=== PATIENT | female | born 1990 | race Caucasian/White ===

== ENCOUNTER 2022-12-10 14:37 | Outpatient (CLI) | payer OTHER, SELFPAY | END 2022-12-10 14:38 | disposition home or self-care (01) | PROVIDERS: PCP Family Medicine; Visit Provider Family Medicine | DX: Z00.00 Encounter for general adult medical examination without abnormal findings (principal); E66.9 Obesity, unspecified; R03.0 Elevated blood-pressure reading, without diagnosis of hypertension; F41.9 Anxiety disorder, unspecified; R53.83 Other fatigue; R73.09 Other abnormal glucose; Z13.6 Encounter for screening for cardiovascular disorders | CPT/HCPCS: 80053; 80061; 84443 ==

== ENCOUNTER 2023-04-09 12:42 | Outpatient (CLI) | payer OTHER, SELFPAY ==
--- NOTE | 2023-04-09 13:00 | CRLHL7_ITS ---
For Patients: As a result of the Century Cures Act, medical imaging exams and procedure reports are released immediately into your electronic medical record. You may view this report before your referring provider. If you have questions, please contact your health care provider. INDICATION: First trimester scan, establish dates. COMPARISON: None. TECHNIQUE: Real-time perkins-scale imaging of the pelvis was performed. FINDINGS: Sonographic imaging demonstrates a single living intrauterine gestation. The embryo demonstrates a regular cardiac rate measuring 159 beats per minute. The embryo`s crown-rump length measurement of 1.9 cm corresponds to a gestational age of 8 weeks 3 days with a sonographic due date of 11/16/2023. There is a normal-appearing yolk sac. There are no gross abnormalities noted within the embryo at this early state of development. The gestational sac has a normal appearance. There is no evidence of a perigestational hemorrhage. The amount of fluid within the sac appears appropriate for gestational age. The cervix is closed. The myometrium appears normal. Small incidental cervical nabothian cyst. The ovaries are of normal size. Corpus luteal cyst left ovary. There are no suspicious fluid collections noted in the cul-de-sac. IMPRESSION: Normal first trimester OB ultrasound exam. Gestational age calculated at 8 weeks 3 days with a sonographic due date of 11/16/2023. Dictated by Roosevelt Méndez MD @ 04/09/2023 2:07:38 PM (Electronically Signed)
== END 2023-04-09 12:43 | disposition home or self-care (01) ==
LOC: US 12:44
PROVIDERS: PCP Family Medicine; Visit Provider Registered Nurse
DX: Z34.91 Encounter for supervision of normal pregnancy, unspecified, first trimester (principal); Z3A.08 8 weeks gestation of pregnancy
CPT/HCPCS: 76817; 84443; 86703; 86803; 86850; 86900; 86901; 87086; 87340; 87491; 87591

== ENCOUNTER 2023-04-09 14:03 | Outpatient (CLI) | payer OTHER, SELFPAY ==
[2023-04-09 18:55] LABS: Chlamydia DNA Amplified* NOT DETECTED (No Detected); GC DNA Amplified* NOT DETECTED (No Detected)
== END 2023-04-09 14:04 | disposition home or self-care (01) ==
PROVIDERS: PCP Family Medicine; Visit Provider Registered Nurse
DX: Z34.91 Encounter for supervision of normal pregnancy, unspecified, first trimester (principal); Z3A.08 8 weeks gestation of pregnancy
CPT/HCPCS: 84443; 86592; 86703; 86762; 86787; 86803; 86850; 86900; 86901; 87086; 87340; 87491; 87591

== ENCOUNTER 2023-04-23 10:22 | Outpatient (CLI) | payer OTHER, SELFPAY ==
--- NOTE | 2023-04-23 10:45 | CRLHL7_ITS ---
For Patients: As a result of the Cures Act, medical imaging exams and procedure reports are released immediately into your electronic medical record. You may view this report before your referring provider. If you have questions, please contact your health care provider. INDICATION: NONTOXIC GOITER COMPARISON: none TECHNIQUE: [place] scale and color Doppler images were acquired of the thyroid gland. FINDINGS: The thyroid gland demonstrates heterogeneous echogenicity and has a smooth outer contour. The right lobe measures 5.8 x 1.4 x 1.9 cm and the left lobe measures 5.2 x 1.6 x 2.3 cm in size. The isthmus measures 3 millimeters. Near isoechoic nodule inferior pole right thyroid lobe measures 6 x 5 x 10 millimeters, TR 3. Partially hypoechoic nodule inferior pole left thyroid lobe measures 7 x 7 x 7 millimeters, TR 4. Near isoechoic nodule inferior pole left thyroid lobe measuring 5 x 5 x 10 millimeters, TR 3. The color Doppler images demonstrate normal vascularity. There is no evidence of cervical lymphadenopathy or parathyroid mass. IMPRESSION: Small benign thyroid nodules measuring 1 cm or less. No further follow-up indicated. Dictated by Roosevelt Méndez MD @ 04/23/2023 12:56:22 PM (Electronically Signed)
== END 2023-04-23 10:23 | disposition home or self-care (01) ==
LOC: US 10:23
PROVIDERS: PCP Family Medicine; Visit Provider Registered Nurse
DX: E04.9 Nontoxic goiter, unspecified (principal)
CPT/HCPCS: 76536

== ENCOUNTER 2023-07-02 12:45 | Outpatient (CLI) | payer OTHER, SELFPAY ==
--- NOTE | 2023-07-02 13:00 | CRLHL7_ITS ---
For Patients: As a result of the Century Cures Act, medical imaging exams and procedure reports are released immediately into your electronic medical record. You may view this report before your referring provider. If you have questions, please contact your health care provider. INDICATION: Evaluate anatomy. COMPARISON: 04/09/2023 TECHNIQUE: Real time perkins scale imaging of the fetus was performed as well as color Doppler analysis of the umbilical vessels. FINDINGS: Sonographic imaging demonstrates a single living intrauterine gestation. Fetus demonstrates a regular cardiac rate of 138 beats per minute. Fetus has a vertex position. The placenta lies posteriorly without evidence of placenta previa. The placental edge is located 4.5 cm from the internal cervical os. Amniotic fluid volume appears normal. Single deepest vertical pocket: 4.3 cm. The cervix is closed and measures 4.2 cm in length. The composite ultrasound gestational age is calculated at 19 weeks 5 days with an estimated sonographic due date of 11/21/2023. The estimated weight is 325 grams which lies at the 23rd %. The following biometric measurements were obtained: Biparietal diameter: 4.5 cm/19 weeks 4 days 15th% Head circumference: 16.8 cm/19 weeks 3 days 8th% Abdominal circumference: 14.4 cm/19 weeks 5 days 23rd% Femur length: 3.3 cm/20 weeks 3 days 42nd% The HC/AC ratio measures: 1.17 range (1.08-1.26) On anatomic survey, there is a normal appearance of the cerebral ventricles, cavum septi pellucidi, cisterna magna and cerebellum. The nose, lips, and facial profile appear normal. The cervical, thoracic and lumbar spine are well visualized and appear normal. There is a normal four-chamber heart view and the left and right ventricular outflow tracts appear normal. The diaphragm and stomach appear normal. The kidneys and bladder also appear normal. There is a normal three-vessel cord and cord insertion site. The four extremities appear normal. IMPRESSION: Normal OB ultrasound exam with concordance of clinical and sonographic dating. No intrinsic abnormalities noted on anatomic survey. Dictated by Roosevelt Méndez MD @ 07/02/2023 1:47:13 PM (Electronically Signed)
== END 2023-07-02 12:46 | disposition home or self-care (01) ==
LOC: US 12:46
PROVIDERS: PCP Family Medicine; Visit Provider Obstetrics & Gynecology
DX: Z34.92 Encounter for supervision of normal pregnancy, unspecified, second trimester (principal); Z3A.19 19 weeks gestation of pregnancy
CPT/HCPCS: 76805

== ENCOUNTER 2023-08-26 10:05 | Outpatient (CLI) | payer OTHER, SELFPAY ==
--- OUTSIDE RECORDS SUMMARY | 2023-08-29 13:20 | XMS_ITS | Clinical Summary ---
Author Name Unknown Organization [facility] Address [place], [place] [address] Care Team Providers Care Financial Solutions Advisor Name Role Phone Clinic, No Pcp Or Primary Care Provider Unavaila ble Allergies No known active allergies Medications No known medications Family History Medical History Relation Name Comments Diabetes Father Diabetes Paternal Grandfather Relation Name Status Comments Father Paternal Grandfather Social History Tobacco Use Types Packs/Day Years Used Date Smoking Tobacco: Never Smokeless Tobacco: Never Tobacco Cessation:Counseling Given: No Alcohol Use Standard Drinks/Week Comments Yes 0 (1 standard drink = 0.6 oz pur e alcohol) Sex and Gender Information Value Date Recorded Sex Assigned at Not on file Gender Identity Not on file Sexual Orientation Not on file Obstetrics History Last Filed Vital Signs Vital Sign Reading Time Taken Comments Blood Pressure 125/81 01/06/2018 4:09 PM CDT Pulse 67 01/06/2018 4:09 PM CDT Temperature 36.9 ??C (98.4 ??F) 12/29/2017 1:18 PM CD T Respiratory Rate - - Oxygen Saturation 99% 01/06/2018 4:09 PM CDT Inhaled Oxygen Concentration - - Weight 87.2 kg (192 lb 3.2 oz) 01/06/2018 4:09 P M CDT Height 172 cm (5' 7.72) 01/06/2018 4:09 PM CDT Body Mass Index 29.47 01/06/2018 4:09 PM CDT Plan of Treatment Health Maintenance Due Date Last Done Comments COVID-19 vaccine series (#1) 1989 Tdap 01/16/2000 HIV for age 15-65 01/16/2004 Hepatitis C screening for ag e 18-79 2007 Tetanus booster 2009 Depression screening for age 12+ 12/29/2018 12/29/2017 BMI (ht and wt on same day) for age 18+ 01/06/2019 01/06/2018, 12/29/2017 Pap test for age 21-65 01/27/2023 0, 01/28/2020 Influenza for age 9-49 04/11/2023 Pneumococcal series for age 6-64 Aged Out No longer eligible b ased on patient's age to complete this topic Care Teams Financial Solutions Advisor Relationship Specialty Start Date End Date Clinic, No Pcp Or . PCP - General 12/29/17
== END 2023-08-26 10:06 | disposition home or self-care (01) ==
LOC: NFLDREF 08-29 13:19
PROVIDERS: PCP Family Medicine; Referring Provider Family Medicine; Visit Provider Obstetrics & Gynecology
DX: Z11.3 Encounter for screening for infections with a predominantly sexual mode of transmission (principal)
CPT/HCPCS: 86592

== ENCOUNTER 2023-09-09 10:37 | Outpatient (CLI) | payer OTHER, SELFPAY ==
--- OUTSIDE RECORDS SUMMARY | 2023-09-09 10:40 | XMS_ITS | Clinical Summary ---
Author Name Unknown Organization [employer] [facility] Address [place], [place] [address] Care Team Providers Care Insulation Cupola Charger Name Role Phone Clinic, No Pcp Or [...] age to complete this topic Care Teams Insulation Cupola Charger Relationship Specialty Start Date End Date Clinic, No Pcp Or . PCP - General 12/29/17
== END 2023-09-09 10:38 | disposition home or self-care (01) ==
PROVIDERS: PCP Family Medicine; Visit Provider Obstetrics & Gynecology
DX: O16.3 Unspecified maternal hypertension, third trimester (principal)
CPT/HCPCS: 82565; 82570; 84156; 84450; 84460; 84520

== ENCOUNTER 2023-09-17 12:59 | Outpatient (CLI) | payer OTHER, SELFPAY ==
--- NOTE | 2023-09-17 13:00 | CRLHL7_ITS ---
For Patients: As a result of the Century Cures Act, medical imaging exams and procedure reports are released immediately into your electronic medical record. You may view this report before your referring provider. If you have questions, please contact your health care provider. INDICATION: Third trimester scan, evaluate growth. Size discrepancy. COMPARISON: 07/02/2023 TECHNIQUE: Real time perkins scale imaging of the fetus was performed. FINDINGS: Sonographic imaging demonstrates a single living intrauterine gestation. Fetus demonstrates a regular cardiac rate of 131 beats per minute. Fetus has a vertex position. The placenta lies posteriorly. Amniotic fluid volume appears normal and there is a single deepest vertical pocket: 4.2 cm. The estimated weight is 1631gm which lies at the 19th %. On the prior OB ultrasound exam dated 07/02/2023 the estimated weight was at the 23rd%. BPD 8th percentile. HC 9th percentile. AC 22nd percentile. FL 30th percentile. The HC/AC ratio measures 1.07 range (0.96-1.18). IMPRESSION: Sonographic gestational age 30 weeks 5 days and sonographic due date 11/21/2023. Sonographic age is 5 days behind the clinical age. Estimated weight 19th percentile. Abdominal circumference 22nd percentile. Dictated by Roosevelt Méndez MD @ 09/18/2023 10:05:36 AM (Electronically Signed)
--- OUTSIDE RECORDS SUMMARY | 2023-09-17 13:01 | XMS_ITS | Clinical Summary ---
Author Name Unknown Organization [employer] [facility] Address [place], [place] [address] Care Team Providers Care State Comptroller Name Role Phone Clinic, No Pcp Or [...] age to complete this topic Care Teams State Comptroller Relationship Specialty Start Date End Date Clinic, No Pcp Or . PCP - General 12/29/17"
== END 2023-09-17 13:00 | disposition home or self-care (01) ==
LOC: US 12:59
PROVIDERS: PCP Family Medicine; Visit Provider Obstetrics & Gynecology
DX: O26.843 Uterine size-date discrepancy, third trimester (principal); Z3A.30 30 weeks gestation of pregnancy
CPT/HCPCS: 76816

== ENCOUNTER 2023-09-24 10:59 | Outpatient (CLI) | payer OTHER, SELFPAY ==
--- NOTE | 2023-09-24 11:00 | US_ITS ---
INDICATION: CHRONIC HYPERTENSION. TECHNIQUE: ROUTINE GRAYSCALE NONSTRESS TESTING ULTRASOUND OF FETUS PERFORMED. COMPARISON: 09/17/2023. FINDINGS: NORMAL GROSS BODY MOVEMENTS, TONE AND RESPIRATORY ACTIVITY. NORMAL AMNIOTIC FLUID WITH SINGLE DEEPEST POCKET MEASURING 5.8 CM. HEART RATE 127 BEATS PER MINUTE. PLACENTA IS POSTERIOR. VERTEX POSITION. IMPRESSION: BIOPHYSICAL PROFILE 03/18.
--- OUTSIDE RECORDS SUMMARY | 2023-09-24 11:01 | XMS_ITS | Clinical Summary ---
Author Name Unknown Organization [facility] [facility] Address [place], [place] [address] Care Team Providers Care Geoscience Specialist Name Role Phone Clinic, No Pcp Or [...] age to complete this topic Care Teams Geoscience Specialist Relationship Specialty Start Date End Date Clinic, No Pcp Or . PCP - General 12/29/17
== END 2023-09-24 11:00 | disposition home or self-care (01) ==
LOC: US 10:59
PROVIDERS: PCP Family Medicine; Visit Provider Obstetrics & Gynecology
DX: O10.919 Unspecified pre-existing hypertension complicating pregnancy, unspecified trimester (principal)
CPT/HCPCS: 76819

== ENCOUNTER 2023-09-25 06:54 | Day surgery (SDC) | payer OTHER, SELFPAY ==
[2023-09-25] VITALS (12 sets, daily range): BP systolic 130–141; BP diastolic 75–85; PULSE 86–102; RESP 16–20; TEMP 36.5–36.6; O2SAT 97–99; BMI 43.7
--- OUTSIDE RECORDS SUMMARY | 2023-09-25 06:56 | XMS_ITS | Clinical Summary ---
Author Name Unknown Organization [facility] Address [place], [place] [address] Care Team Providers Care Restaurant Busser Name Role Phone Clinic, No Pcp Or [...] age to complete this topic Care Teams Restaurant Busser Relationship Specialty Start Date End Date Clinic, No Pcp Or . PCP - General 12/29/17
[2023-09-25] MEDS: lidocaine HCL 2 % MULTIDOSE 20 ML VIAL 7 ML INJECTION (07:40)
[2023-09-25] MEDS: BUPIVACAINE 0.5% 30 ML 5 ML INJECTION (07:40)
--- NOTE | 2023-09-25 08:22 | P.ORPRC_ITS ---
Procedure Note Date of procedure: 09/25/23 Procedure: Preop diagnosis: Right upper extremity de quervain's tenosynovitis Postop diagnosis: Right upper extremity de quervain's tenosynovitis Procedure: Right upper extremity 1st dorsal compartment release Anesthesia: Local Surgeon: Jourdan Valle MD health information assistant: CHELY Kan EBL: 0 mL Complications: None Specimens: None Drains: None Indications: The patient has a history of right upper extremity de quervain's tenosynovitis symptoms. Despite appropriate nonoperative management consisting of bracing and occupational therapy they continue to have symptoms. Operative intervention was recommended. The risks, benefits alternatives and expected outcomes were discussed in detail. These included but were not limited to: Infection, bleeding, injury to blood vessel or nerve, venous thromboembolism. All questions were answered to their satisfaction. The patient was placed supine on the operating room table. Local anesthesia was established with 0.5% Marcaine without epinephrine and 2% lidocaine without epinephrine. The upper extremity was prepped and draped in usual sterile fashion. The limb was elevated, the forearm pneumatic tourniquet was inflated to 250 mm of mercury. A longitudinal incision was made centered over the 1st dorsal compartment. Subcutaneous dissection was taken with tenotomy scissors to the 1st dorsal compartment. Branches of the radial sensory nerve were protected and retracted out of the field. The retinaculum over the 1st dorsal compartment was divided longitudinally. The tenosynovium surrounding the tendons of the 1st dorsal compartment was debrided with the tenotomy scissors. There were no septae dividing the 1st dorsal compartment. However, the APB was in its own fibro-osseous tunnel, deep to the APL. This was opened and the APB was dissected free both proximally and distally. The edges of the retinaculum and the fibro-osseous tunnel were resected with the scalpel and rongeur. The wound was irrigated with normal saline. It was closed with 3-0 Vicryl deep and 3-0 Monocryl in a subcuticular fashion. Glue was used to seal the skin. The tourniquet was released. A dry dressing and thumb spica brace were applied. Sponge and needle counts were correct x 2. The patient tolerated the procedure well, there were no apparent complications. They were sent to same day surgery in satisfactory condition. Plan: Use of the hand as tolerates. Discontinue the intraoperative dressing on postoperative day 3 and may get the wound wet as tolerates. Follow up in the office in 1-2 weeks for a wound check.
[2023-09-25] MEDS: ETHYL CHLORIDE 1 APPLICATION 1 APPLIC TOPICAL (08:24)
== END 2023-09-25 08:57 | disposition home or self-care (01) ==
PROVIDERS: PCP Family Medicine; Visit Provider Orthopaedic Surgery
PROC: (CPT 25000; principal; 2023-09-25 07:15)
DX: M65.4 Radial styloid tenosynovitis [de Quervain] (principal)
CPT/HCPCS: 25000; A4580; J0665

== ENCOUNTER 2023-10-02 13:00 | Outpatient (CLI) | payer OTHER, SELFPAY ==
--- NOTE | 2023-10-02 13:00 | US_ITS ---
Patient: THALIA SIMS Facility:?[facility] Patient ID:?[id number] Site Patient ID:?[id number]. Site :?1990 Study:?US-OB Pelvis -10/02/2023 1:41:52 PM Ordering Physician:LE SMITH Final Report: INDICATION: Chronic hypertension TECHNIQUE: Limited transabdominal two-dimensional perkins-scale ultrasound examination. COMPARISON: None FINDINGS: There is a living fetus cephalic lie with gestational age of 33 weeks 4 days and EDC 11/16/2023. The biophysical profile score is 8/8. The heart rate is measured at 130 beats per minute and the rhythm appears regular. The amniotic fluid volume is within normal limits with single deepest pocket of 4.7 cm. The placenta is fundal and superior to the cervical os. There is no evidence of previa. IMPRESSION: 1. Living fetus is cephalic lie with gestational age of 33 weeks 4 days and EDC of 11/16/2023. 2. Biophysical profile score is 8/8. Dictated by Aaron Pierson MD @ 10/03/2023 7:32:46 AM Signed by:?Aaron Pierson MD @10/03/2023 7:32:46 AM (Electronic Signature)
== END 2023-10-02 13:01 | disposition home or self-care (01) ==
LOC: US 13:00
PROVIDERS: PCP Family Medicine; Visit Provider Obstetrics & Gynecology
DX: O10.913 Unspecified pre-existing hypertension complicating pregnancy, third trimester (principal); Z3A.33 33 weeks gestation of pregnancy
CPT/HCPCS: 76819

== ENCOUNTER 2023-10-09 16:52 | Outpatient (CLI) | payer OTHER, SELFPAY ==
--- NOTE | 2023-10-09 17:00 | US_ITS ---
Patient: THALIA SIMS Facility:?[facility] Patient ID:?[id number] Site Patient ID:?[id number]. Site :?1990 Study:?US-OB Pelvis BPP W GROWTH-10/09/2023 5:58:56 PM Ordering Physician:MAGALIE TELLEZ Final Report: INDICATION: Chronic hypertension. Size discrepancy TECHNIQUE: Limited transabdominal two-dimensional perkins-scale ultrasound examination. COMPARISON: 10/02/2023 FINDINGS: There is a living fetus in cephalic lie with gestational age of 34 weeks 4 days by LMP and 34 weeks 2 days by today`s measurements. EDC based on LMP is 11/16/2023. BPD: 8.4 cm, 33 weeks 6 days Head circumference: 31.0 cm, 34 weeks 4 days Abdominal circumference: 30.5 cm, 34 weeks 3 days Femur length: 6.7 cm, 34 weeks 3 days The weight is estimated at 2422 grams, the 40th percentile. The biophysical profile score is 8/8. The heart rate is measured at 152 beats per minute and the rhythm appears regular. The amniotic fluid volume is within normal limits with single deepest pocket of 5.5 cm. The placenta is posterior and superior to the cervical os. There is no evidence of previa. IMPRESSION: 1. Living fetus in cephalic lie with gestational age of 34 weeks 3 days by LMP and 34 weeks 2 days by today`s measurements. EDC based on LMP is 11/16/2023. 2. weight estimated at 2422 grams, the 40th percentile. 3. Biophysical profile score is 8/8. Dictated by Aaron Pierson MD @ 10/10/2023 9:30:30 AM Signed by:?Aaron Pierson MD @10/10/2023 9:30:30 AM (Electronic Signature)
== END 2023-10-09 16:53 | disposition home or self-care (01) ==
PROVIDERS: PCP Family Medicine; Visit Provider Obstetrics & Gynecology
DX: O10.913 Unspecified pre-existing hypertension complicating pregnancy, third trimester (principal); O26.843 Uterine size-date discrepancy, third trimester; Z3A.34 34 weeks gestation of pregnancy
CPT/HCPCS: 76816; 76819

== ENCOUNTER 2023-10-16 13:51 | Outpatient (CLI) | payer OTHER, SELFPAY ==
--- NOTE | 2023-10-16 14:00 | US_ITS ---
Patient: THALIA SIMS Facility:?[facility] Patient ID:?[id number] Site Patient ID:?[id number]. Site :?1990 Study:?US-OB Pelvis BPP-10/16/2023 2:52:06 PM Ordering Physician:Tequila Colon Final Report: INDICATION: Chronic hypertension. COMPARISON: OB ultrasound 10/09/2023. TECHNIQUE: Ultrasound OB pelvis biophysical profile. Real time perkins scale imaging of the fetus was performed without non-stress testing. FINDINGS: Sonographic imaging demonstrates a single living intrauterine gestation. The fetus demonstrates a regular cardiac rate of 135 beats per minute. The fetus has a cephalic orientation. The placenta lies posteriorly. Single deepest pocket measures 6.5 cm (2/2). The fetus was active (2/2). There was normal flexion and extension of the trunk and extremities (2/2). The fetus demonstrated normal breathing movements (2/2). IMPRESSION: Normal biophysical profile score 8 out of 8. Dictated by Huma Dalton MD @ 10/17/2023 2:55:28 AM Signed by:?Huma Dalton MD @10/17/2023 2:55:28 AM (Electronic Signature)
== END 2023-10-16 13:52 | disposition home or self-care (01) ==
LOC: US 13:51
PROVIDERS: PCP Family Medicine; Visit Provider Obstetrics & Gynecology
DX: O10.919 Unspecified pre-existing hypertension complicating pregnancy, unspecified trimester (principal)
CPT/HCPCS: 76819

== ENCOUNTER 2023-10-20 13:00 | Outpatient (CLI) | payer OTHER, SELFPAY ==
--- NOTE | 2023-10-20 13:00 | US_ITS ---
Patient: THALIA SIMS Facility:?[facility] Patient ID:?[id number] Site Patient ID:?[id number]. Site :?1990 Study:?US-OB Pelvis BPP-10/20/2023 1:51:57 PM Ordering Physician:LUIS Final Report: INDICATION: Hypertension. COMPARISON: OB ultrasound 10/16/2023. TECHNIQUE: Ultrasound OB pelvis biophysical profile. Real time perkins scale imaging of the fetus was performed without non-stress testing. FINDINGS: Sonographic imaging demonstrates a single living intrauterine gestation. The fetus demonstrates a regular cardiac rate of 144 beats per minute. The fetus has a cephalic orientation. The placenta lies posteriorly. Single deepest pocket measures 4.2 cm (2/2). The fetus was active (2/2). There was normal flexion and extension of the trunk and extremities (2/2). The fetus demonstrated normal breathing movements (2/2). IMPRESSION: Normal biophysical profile score 8 out of 8. Dictated by Huma Dalton MD @ 10/21/2023 3:39:47 AM Signed by:?Huma Dalton MD @10/21/2023 3:39:47 AM (Electronic Signature)
== END 2023-10-20 13:01 | disposition home or self-care (01) ==
LOC: US 13:00
PROVIDERS: PCP Family Medicine; Visit Provider Obstetrics & Gynecology
DX: O10.919 Unspecified pre-existing hypertension complicating pregnancy, unspecified trimester (principal)
CPT/HCPCS: 76819; 87081; 87653

== ENCOUNTER 2023-10-27 12:59 | Outpatient (CLI) | payer OTHER, SELFPAY ==
--- NOTE | 2023-10-27 13:00 | US_ITS ---
Patient: THALIA SIMS Facility:?[facility] Patient ID:?[id number] Site Patient ID:?[id number]. Site :?1990 Study:?US-OB Pelvis BPP-10/27/2023 1:44:35 PM Ordering Physician:Fanny Tinoco Final Report: INDICATION: Hypertension. COMPARISON: OB ultrasound 10/16/2023. TECHNIQUE: Ultrasound OB pelvis biophysical profile. Real time perkins scale imaging of the fetus was performed without non-stress testing. FINDINGS: Sonographic imaging demonstrates a single living intrauterine gestation. The fetus demonstrates a regular cardiac rate of 150 beats per minute. The fetus has a vertex orientation. The placenta lies posteriorly. Single deepest pocket measures 7.4 Cm (2/2). The fetus was active (2/2). There was normal flexion and extension of the trunk and extremities (2/2). The fetus demonstrated normal breathing movements (2/2). IMPRESSION: Normal biophysical profile score 8 out of 8. Dictated by Pedro Sampson MD @ 10/27/2023 6:02:09 PM Signed by:?Pedro Sampson MD @10/27/2023 6:02:09 PM (Electronic Signature)
== END 2023-10-27 13:00 | disposition home or self-care (01) ==
LOC: US 12:59
PROVIDERS: PCP Family Medicine; Visit Provider Obstetrics & Gynecology
DX: O10.919 Unspecified pre-existing hypertension complicating pregnancy, unspecified trimester (principal)
CPT/HCPCS: 76819

== ENCOUNTER 2023-11-03 13:56 | Outpatient (CLI) | payer OTHER, SELFPAY ==
--- NOTE | 2023-11-03 14:00 | US_ITS ---
Patient: THALIA SIMS Facility:?[facility] Patient ID:?[id number] Site Patient ID:?[id number]. Site :?1990 Study:?US-OB Pelvis BPP/ F/U OB-11/03/2023 2:57:00 PM Ordering Physician:Tequila Colon Final Report: OB ULTRASOUND/BPP, 11/03/2023 INDICATION: INDU by LMP: 11/16/2023. GA: 38 weeks 1 day. Hypertension, EPP and followup growth. Cervix: Not visualized. positioning: Vertex. Amniotic fluid: 3.93 cm FINDINGS: BIOPHYSICAL PROFILE: Total score: 8/8 Gross body movements: 2 tone: 2 Respiratory activity: 2 Amniotic fluid volume: 2 PLACENTA: Technique: Transabdominal. Placenta position: Fundal, posterior. DOPPLERS: Heart Rate: 154 bpm. BIOMETRY: BPD: 9.29 cm, 37 weeks 5 days, 65.1%. HC: 33.50 cm, 38 weeks 2 days, 35.1%. AC: 34.06 cm, 38 weeks 0 days, 63.7%. FL: 7.56 cm, 38 weeks 5 days, 66.7%. FL/AC Ratio: 22.20%. HC/AC Ratio: 0.98%. EFW: 77271 grams. 7 lbs 8 oz Age by this US: 38 weeks 1 day INDU by this US: 11/16/2023 Percentile by INDU: 63.6% IMPRESSION: 1. Normal biophysical profile score of 8/8. 2. Measurements are consistent with dates. CONNER BARRIOS M.D. DAISY:pjt D& Transcribed: 12:23 [address] [email or web address] PT/Dictated by: Conner Barrios MD @ 11/04/2023 10:10:00 AM Signed by:?Conner Barrios MD @11/04/2023 12:46:25 PM (Electronic Signature)
== END 2023-11-03 13:57 | disposition home or self-care (01) ==
LOC: US 13:56
PROVIDERS: PCP Family Medicine; Visit Provider Obstetrics & Gynecology
DX: O10.913 Unspecified pre-existing hypertension complicating pregnancy, third trimester (principal); Z3A.38 38 weeks gestation of pregnancy
CPT/HCPCS: 76816; 76819

== ENCOUNTER 2023-11-10 07:32 | Inpatient (IN) | payer OTHER, SELFPAY ==
[2023-11-10] VITALS (41 sets, daily range): BP systolic 104–164; BP diastolic 55–97; PULSE 18–176; RESP 18–20; TEMP 36.5–39.4; O2SAT 97–100; BMI 44.7
--- NOTE | 2023-11-10 08:20 | P.LDBA_ITS ---
Subjective History of Present Illness Time Seen by Provider: 08:15 Narrative: Patient is being admitted to Labor and Delivery for induction of labor secondary to chronic hypertension. She is a 33 year old at 39 1/7 weeks gestation. Her full history and physical was dictated on 10/27/[address] Swift. Please see this for details. This morning, she feels well. Her fetus is active. Specific Issues/Plans G 1 P 0 Spouse: Dereje. Baby: Girl! Nikki 1. BMI 39.3. * Hemoglobin A1c:5.6 * Recommend daily baby aspirin starting at 12 weeks due to BMI and 1st : Started confirmed on 05/07/23 * Consider weekly BPP and/or NST starting at 37 weeks 2. Anxiety. Currently well managed on sertraline 100 mg daily. Not interested in seeing a therapist. PHQ is 2, MARK is 0 3. Enlarged thyroid on exam. TSH with reflex to T4 ordered and thyroid ultrasound ordered. * Normal thyroid US Normal TSH, no further testing unless clinical changes 4. DeQuervain's tenosynovitis R wrist. Referred to ortho, released in clinic 09/25/23 5. Chronic HTN * Patient had high blood pressure on 12/10/22 (152/68 and 146/72) and on 01/22/23 (142/88 and 136/84). These were all outside of and Dr. Morley was evaluating her for it * She's had several BP in 130s/80s during * Pre-eclampsia labs on 09/09/2023: Hgb 12.0 Plt 267 Cr 0.5 ALT 17 AST 22. Protein creatinine ratio 0 * Currently does not require antihypertensive * Growth scan Q 4 weeks * Weekly BPP starting at 32 weeks * 34 week Growth: 40%ile, BPP 8/8 * 11/03/2023 38 weeks: BPP 8/8. SDP 3.93 cm EFW 3409 g, 7 lb 8 oz, 63.6%. BPD 65%, HC 35%, AC 63.7%, FL 66.7% * Delivery: 38 -39w6d, sooner if indicated - scheduling request for 39w0d completed on 10/19 COVID: Completed and boosted, but not current with booster. Recommended. Flu : 06/04/23 Tdap: 09/09/23 RSV: NA OB - Problem Based A/P Delivery/Labor/Induction Plan Plan: induction (Amniotomy and pitocin infusion planned. Dunham score 7.) Induction method: AROM (Scant clear fluid mixed with bloody show) OB Result Labs Blood Type: B (+) positive Rubella: immune RPR/VDLR: nonreactive GBS Status: negative HBsAG: negative OB Exam Physical Exam Vital signs: Pulse BP 86 137/77 11/10/23 07:53 11/10/23 07:53 Narrative: No acute distress. Abdomen nontender. Trace lower extremity edema. Detailed Labor and Delivery Exam Patient Gravid: Yes Dilation (cm): 3 Effacement (%): 60 Cervix position: posterior Consistency: soft Cervical ripeness score: 7 Fetus (Single) Station: -2 Amniotic Membrane Status: intact Heart Rate Baseline: 140 Monitor Accelerations: Present Monitor Decelerations: None Photogrammetric Stereo Compiler Variability: Moderate (6-25)
[2023-11-10 09:01] LABS: Basophils Absolute Auto 0.04 K/uL (0.00-0.30); Basophils Percent Auto 0.4 % (0.0-3.0); Eosinophils Percent Auto 2.2 % (0.0-7.0); Hematocrit 37.4 % (33.0-51.0); Immature Granulocytes Abs Auto 0.04 K/uL (0.00-0.30); Immature Granulocytes Pct Auto 0.4 %; Lymphocytes Percent Auto 17.2 % (20-44); Mean Corpuscular HGB Conc 32 gm/dL (32-36); Mean Corpuscular Hemoglobin 27 pg (26-34); Mean Corpuscular Volume 85 fL (80-100); Monocytes Percent Auto 9.1 % (0.0-11.0); Neutrophils Absolute Auto 6.56 K/uL (1.7-7.0); Neutrophils Percent Auto 70.7 % (42.0-72.0); Platelet Count* 211 K/uL (140-440); RDW Coefficient of Variation % 14.7 % (11.5-15.5); White Blood Count* 9.28 K/uL (4.50-11.00)
[2023-11-10 09:03] LABS: Slide Review Reflex No
[2023-11-10 09:16] LABS: Total Protein Urine 7 mg/dL
[2023-11-10 09:17] LABS: Creatinine Urine 153.4 mg/dL
[2023-11-10 09:29] LABS: Alanine Aminotransferase* 15 U/L (4-35); Aspartate Amino Transferase* 24 U/L (12-35); Blood Urea Nitrogen* 11 mg/dL (5-24); Creatinine* 0.4 mg/dL (0.5-1.5); Est. Creatinine Clearance* 192.71; Estimated Glomerular Filt Rate 133 ml/min
[2023-11-10] MEDS: LACTATED RINGERS 1000 ML 1,000 ML 125 ML IV ×3 (09:48→19:14)
[2023-11-10] MEDS: OXYTOCIN 30 unit/500 ML in NS 30 UNIT/500 ML BAG IVPB (09:58)
[2023-11-10] MEDS: ROPIVACAINE 0.2% 100 ml 100 ML 12 MG EPIDURAL (18:15)
--- NOTE | 2023-11-10 18:42 | PM.ANBPRC ---
[facility] Medical History (Updated 10/27/23 @ 14:12 by Fanny Swift MD) Social anxiety disorder ?F40.10 - Social phobia, unspecified (ICD-10) Obesity (BMI 30-39.9) ?E66.9 - Obesity, unspecified (ICD-10) Anxiety ?F41.9 - Anxiety disorder, unspecified (ICD-10) Surgical History H/O hand surgery (09/25/23) ?Z98.890 - Other specified postprocedural states (ICD-10) History of wisdom tooth extraction (2019) ?K08.409 - Partial loss of teeth, unspecified cause, unspecified class (ICD-10) Family History Father Type 2 diabetes mellitus Sister Anxiety Social History (Updated 10/27/23 @ 14:13 by Fanny Swift MD) Narrative: Lives in [facility] with . 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, no kids Nonsmoker, quit 2019 before then irregular smoking for 10 years Not drinking, 8-10 alcoholic drinks a week What is your current living situation?: I presently have a place to live Problems where you live: no known problems In the past 12 months, utilities in danger of being shut off: no In past 12 months, lack of transportation kept you from medical appts, meetings, work, or getting things needed for daily living: no In the past 12 mos, have been you worried that your food would run out before you had money to buy more?: never true In the past 12 mos, the food you bought just didn't last and you didn't have money to buy more?: never true Smoking Status: Former smoker How often does anyone, including family, friends and others, physically hurt you: never How often does anyone, including family, friends and others, insult or talk down to you: never How often does anyone, including family, friends and others, threaten you with harm: never How often does anyone, including family, friends and others, scream or curse at you: never Little interest or pleasure in doing things: not at all Feeling down, depressed, or hopeless: not at all Meds Home Medications and Allergies Home Medications Medication Instructions Recorded Confirmed Type docosahexaenoic acid 200 mg 1 mg PO DAILY 04/09/23 11/10/23 History capsule ( DHA) aspirin 81 mg chewable tablet 81 mg PO QDAY 07/02/23 11/10/23 History calcium carbonate 200 mg calcium 200 mg PO BID 10/16/23 11/10/23 History (500 mg) chewable tablet (Tums) Allergies Allergy/AdvReac Type Severity Reaction Status Date / Time No Known Allergies Allergy Unknown Verified 11/03/23 15:05 Results Labs Labs: Laboratory Results - last 24 hr 11/10/23 11/10/23 08:47 08:48 WBC 9.28 RBC 4.40 Hgb 12.0 Hct 37.4 MCV 85 MCH 27 MCHC 32 RDW Coeff of Leo 14.7 Plt Count 211 Neut % (Auto) 70.7 Lymph % (Auto) 17.2 L [place] % (Auto) 9.1 Eos % (Auto) 2.2 Baso % (Auto) 0.4 Neut # (Auto) 6.56 Lymph # (Auto) 1.60 [place] # (Auto) 0.80 Eos # (Auto) 0.20 Baso # (Auto) 0.04 Abs Immat Gran (auto) 0.04 Imm/Tot Granulo (auto) 0.4 BUN 11 Creatinine 0.4 L Estimated Creat Clear 192.71 Estimated GFR 133 AST 24 ALT 15 Urine Creatinine 153.4 Protein/Creatinin Ratio 0.00 Urine Total Protein 7 Blood Type B Positive Antibody Screen NEGATIVE Vital Signs Vital Signs: Last Vital Signs Temp 98.4 F 11/10/23 16:52 Pulse 99 11/10/23 18:38 Resp 18 11/10/23 16:07 BP 133/65 11/10/23 18:38 Pulse Ox 97 11/10/23 18:27 Weight: 129.546 kg Height: 170.18 cm Anesthesia Procedures Epidural Insertion Patient Location: OB Start Time: 18:10 Stop Time: 19:10 Start Date: 11/10/23 Stop Date: 11/10/23 Reason for Block: procedure for pain Patient Position: sitting Performed By: Kyle Jo Preanesthetic Checklist: IV checked, risks and benefits discussed, surgical consent, monitors and equipment checked, pre-op evaluation, timeout performed and anesthesia consent Prep: chlorhexidine gluconate Monitoring: blood pressure monitoring, continuous pulse oximetry and heart rate Approach: midline Vertebral Space: lumbar (1-5) Epidural Technique: DANIEL saline Needle Type: Tuohy needle Injection Technique: continuous catheter Needle gauge: 17 Needle Length (cm): 10 cm Needle Insertion Depth (cm): 7 Catheter Gauge: 19 Catheter Type: multi-orifice Catheter at skin depth (cm): 13 Test Dose Result: negative and lidocaine 1.5% with epinephrine 1 to 200,000
[2023-11-10] MEDS: ONDANSETRON 2 MG/ML inj 4 MG IV (21:34)
--- NOTE | 2023-11-10 21:37 | P.OBPN_ITS ---
Subjective Time Seen by Provider: 21:20 Date Seen: 11/10/23 Narrative: Patient comfortable with epidural. Unaware of contractions or pressure. Objective Exam: General appearance: No acute distress, lying on left side. 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 Labor down for now, due to high station.
--- NOTE | 2023-11-10 23:09 | P.OBPN_ITS ---
Subjective Date Seen: 11/10/23 Narrative: Temp 103 degrees F. Pushing with contractions. Temp was 100.1 when she began pushing. 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 Ampicillin and Gentamicin ordered. Tylenol for fever. Continue pushing.
[2023-11-10] MEDS: AMPICILLIN 2 GM in 0.9 % SODIUM CHLORIDE Mini-bag 100 ML IVPB (23:18)
[2023-11-10] MEDS: ACETAMINOPHEN 500 MG TABLET 1000 MG PO (23:21)
[2023-11-11] VITALS (20 sets, daily range): BP systolic 107–134; BP diastolic 50–74; PULSE 94–134; RESP 16–18; TEMP 36.2–39.2; O2SAT 96–97
--- NOTE | 2023-11-11 01:59 | W.PM.OBVAGDE ---
OB Procedure Vag Delivery Mother Details Mother Details: The patient is a 33 year-old, 1, Para 0, admitted on 11/10/23 at 39 1/7 weeks gestation for induction of labor secondary to chronic hypertension. Dunham score 7 on admission. : 1 Para: 0 Weeks Gestation: 39.1 Admission Date: 11/10/23 Additional Details Amniotic Membrane Status: intact Amniotic Membrane Rupture Date: 11/10/23 Amniotic Membrane Rupture Time: 08:14 Amniotic Membrane Fluid Description: Clear Analgesia/Anesthesia Type: Epidural Waterbirth: No Pitcoin: Yes Intrapartal Events: Labor Induction Induction Method: AROM Delivery augmentation: pitocin Labor Onset: 17:30 Complete: 21:26 Pushin:32 Heart: heart tones during second stage were 170-180 bpm baseline with variable decelerations to 60-80s, good return to baseline, good variability. Delivery Details Delivery Date: 11/11/23 Delivery Time: 01:25 Route of delivery: Gender: Female Infant Viability: Alive; Heart Rate Present Position at Delivery: OA Delivery Details: Intrapartum fever to 103.0 degrees F during second stage. tachycardia noted. Diagnosis made of chorioamnionitis. Ampicillin and Gentamicin administered IV. Peds called to attend delivery. Delivered over intact perineum via spontaneous vaginal delivery. Infant was briefly placed on maternal abdomen.? Cord was clamped and cut on the perineum as there was a tight nuchal cord that could not be reduced over the head nor delivered through. Infant was taken to the warmer for evaluation by Melissa Ferris NP.? Infant weight pending. 1 Minute Interval Total Score: 2 5 Minute Interval Total Score: 8 10 Minute Interval Total Score: 8 Additional Details Shoulder Dystocia: No Placenta Delivery Time: 01:28 Placental Delivery Description: Spontaneous Delivery repair: Chromic Procedure Done: Global Blood Loss: 100 Laceration: Vaginal - 2nd Degree Episiotomy Description: None Blood Loss Measurement Type: QBL Bakri Used: No Sponge/Need Count Correct: Yes Cord Vessel Description: 3 Vessels Event Summary Status: Mother and infant were stable after delivery. Disposition: floor
[2023-11-11] MEDS: AMPICILLIN 2 GM in 0.9 % SODIUM CHLORIDE Mini-bag 100 ML IVPB ×4 (05:12→23:33)
[2023-11-11] MEDS: DOCUSATE SODIUM 100 MG CAPSULE PO (11:07)
--- NOTE | 2023-11-11 13:02 | PM.ANPOST ---
Post Anesthesia Note Post Anesthesia Note Patient seen: Inpatient Respiratory Status: adequate Cardiovascular Status: adequate Mental Status: baseline Pain: adequate Temp: baseline Anesthetic awareness: N/A Complications: none Follow care: none
[2023-11-11 15:06] LABS: Rapid Plasma Reagin (RPR) Non Reactive (Non Reactive)
[2023-11-12 01:16] VITALS: BP 110/73; PULSE 68; RESP 16; TEMP 36.8
[2023-11-12 07:57] LABS: Hemoglobin* 10.3 gm/dL (12.0-16.0)
[2023-11-12 08:36] VITALS: BP 118/79; PULSE 93; RESP 16; TEMP 36.7
[2023-11-12] MEDS: DOCUSATE SODIUM 100 MG CAPSULE PO (08:38)
--- NOTE | 2023-11-12 11:09 | PM.OBPNVD1 ---
OB - PN:Subj Subjective Date Seen: 11/12/23 Patient comments OB post-: no complaints Narrative: Fiona is a 33 y.o. G 1 P 1 who was admitted to [facility] for induction of labor for chronic HTN. ?She had a NVD that was complicated by chorioamnionitis. She has been afebrile for greater than 24 hours. The patient feels well. ?The pain is well controlled with current medications. ?She has no new complaints. ?She is breast feeding and reports things are going well. the patient has done well.? Vitals have been stable.? Has a good appetite, is tolerating a general diet. ?She is voiding without difficulty.? She is passing gas and has not had a bowel movement.? She is ambulating and denies any dizziness.? Has small amount of rubra lochia. OB - PN: Obj Exam Physical Exam: Vital signs: Temp Pulse Resp BP Pulse Ox O2 Del Method 98.0 F 93 16 118/79 97 Room Air 11/12/23 08:36 11/12/23 08:36 11/12/23 08:36 11/12/23 08:36 11/11/23 20:47 11/12/23 01:16 Narrative: GENERAL APPEARANCE:? normal affect, alert, no distress MOOD:? appropriate CHEST:? clear to auscultation HEART:? regular rate and rhythm ABDOMEN:? soft, non-tender the uterine fundus is At Umbilicus, Midline and is appropriate for the stage of recovery. PERINEUM:? mild edema of the perineum, there is a vaginal Laceration,?2nd that is healing well. EXTREMITIES:? normal and trace edema OB - PN: Obj Data Labs Labs: Laboratory Results - last 24 hr 11/10/23 11/12/23 08:47 07:43 Hgb 10.3 L RPR Screen Non Reactive OB - PN: A/P Delivery Assessment and Plan (1) care and examination immediately after delivery: Status: Acute (2) Chorioamnionitis, delivered, current hospitalization: Status: Acute (3) Chronic hypertension affecting : Status: Acute (4) Lactating mother: Status: Acute Plan day: 1 Comments: Routine care Anticipate discharge tomorrow Follow up in 2 weeks and 6 weeks. , may see if needed Hgb 10.3. Chronic HTN, continue to monitor BP Chorioamnionitis. Antibiotics completed this morning. Continue to monitor for fever.
[2023-11-12 16:10] VITALS: BP 120/79; PULSE 93; RESP 17; TEMP 36.9
[2023-11-12 19:57] VITALS: BP 131/83; PULSE 87; RESP 17; TEMP 37.1; O2SAT 97
[2023-11-13 01:44] VITALS: BP 123/72; PULSE 67; RESP 17; TEMP 36.7; O2SAT 97
--- NOTE | 2023-11-13 07:29 | P.DS_ITS ---
DS: Providers Provider Date Seen: 11/13/23 Date of admission: 11/10/23 07:32 Primary care physician: Mirta Morley MD Admitting Clinician: Judi Disla MD Attending Physician on discharge: Judi Disla MD Date of Discharge: 11/13/23 DS: Diagnosis Discharge Diagnosis (1) care following vaginal delivery: Status: Acute (2) Lactating mother: Status: Acute (3) Anxiety: Status: Acute Problem details: Started sertraline December 2022 Exam Narrative: Exam Narrative: GENERAL APPEARANCE:? normal affect, alert, no distress? MOOD:? appropriate? CHEST:? clear to auscultation and percussion? HEART:? regular rate and rhythm? ABDOMEN:? soft, non-tender the uterine fundus is 2 cm Below Umbilicus, Midline and is appropriate for the stage of recovery. ? PERINEUM:? mild edema of the perineum, there is a 2nd degree that is healing well.? EXTREMITIES:? normal and no edema? Patient has no complaints? No active bleeding?? Doing well? She is requesting discharge home.? Const: Vital Signs, click to edit/add: Vital Signs - 24 hr 11/12/23 08:36 11/12/23 16:10 11/12/23 19:57 Temperature 98.0 F 98.4 F 98.8 F Pulse Rate [Pulse Oximeter] 93 93 87 Respiratory Rate 16 17 17 Blood Pressure [Ri ght Arm] 118/79 120/79 131/83 Pulse Oximetry 97 Oxygen Delivery Me thod Room Air Room Air 11/13/23 01:44 Temperature 98.1 F Pulse Rate [Pulse Oximeter] 67 Respiratory Rate 17 Blood Pressure [Ri ght Arm] 123/72 Pulse Oximetry 97 Oxygen Delivery Me thod Room Air Documenting provider has reviewed patient's vital signs: yes OB - DS: Summary Hospital Course Hospital Course: The patient is a 33 year old G 1 P 1 at 39.2 weeks gestation that was admitted to the Center on 11/10/23 for []. She had a vaginal delivery complicated by chorioamnionitis. She delivered a viable female infant. She was breast feeding but decided to switch to bottle feeding due to the stress that latching was causing her. She plans to pump and states that her pump is set up and she feels comfortable using it. the patient has done well. The pain is well controlled with current medications.? She has no new complaints.? Urinary output is adequate and she is voiding without difficulty.? Has a good appetite, is tolerating a general diet, is passing flatus, and has not had a bowel movement.? Has scant amount of rubra lochia.? She is ambulating well.?She is unsure what she is planning for control. She was educated on recommendation for 1 year spacing between pregnancies. We discussed options. She is on sertraline and feels stable on this dose. We discussed depression and anxiety. Peripartum Data Infant delivery method: Vaginal Laceration description: Vaginal - 2nd Degree Episiotomy description: None complications: pelvic infection (chorioamnionitis) [place] Infant Gender: Female Infant Discharge Plan: Home Status at Discharge Functional status at discharge: independent ambulation Overall status at discharge: patient is progressing back to baseline Time Spent with Patient Time attestation: Total time spent providing and/or coordinating discharge services: Discharge Plan Discharge Disposition: Home, Self-Care Date of Admission: 11/10/23 07:32 Attending Provider on Discharge: Jen Carpenter Primary Care Provider: Mirta Morley Condition: Stable Anticipated Discharge Date/Time: 11/13/23 10:00 Discharge Medications: New docusate sodium 100 mg Capsule 100 mg PO DAILY Qty: 90 0RF Rx Instructions: Take 1-2 tablets daily as needed for constipation. ibuprofen 600 mg Tablet 600 mg PO Q6H PRNQty: 30 0RF Continued sertraline 100 mg tablet 100 mg PO QDAY Qty: 90 4RF DHA 200 mg capsule 1 mg PO DAILY calcium carbonate [Tums] 200 mg calcium (500 mg) tablet,chewable 200 mg PO BID Discontinued aspirin 81 mg tablet,chewable 81 mg PO QDAY Discharge Orders: Discharge Order (Routine); Ordered 11/13/23 Ordered By: Jen Carpenter Patient Education: OB Vaginal/Bottle Feeding Additional Instructions: Discharge instructions were reviewed with the patient including signs and symptoms of infection and home going medications.? Lifting Restrictions: 20 pounds for 6? weeks? ?? Do not drive while taking narcotic pain meds.? Off Work or School for 6 weeks.? ?? Symptoms to report to doctor:? -Bleeding that saturates more than one pad per hour? -Passing clots larger than the size of a golf ball? -Pain not relieved by prescribed medication? -Fever above 100.4 degrees Fahrenheit? -A foul vaginal odor? -Difficulty in emotions, mood and functions? -Thoughts of hurting yourself and/or ? -Painful, reddened area in your breast? -Any drainage, redness or tenderness in your IV/epidural site? -Severe headache that doesn't improve after taking medications? -Changes in vision, including temporary loss of vision, blurred vision, and/or light sensitivity? -Upper abdominal pain (usually under ribs on the right side)? -Decrease in urination or painful, frequent urinating? -Chest pain? -Shortness of breath? -Tenderness or pain with redness and/swelling in the calf(s) of your leg? ?? Follow Up in clinic in 2 and 6 weeks.? ?? consultation services are available to all mothers and babies for the first year after delivery.? To make an appointment, please call [phone].? Activity Level: Activity as Tolerated Follow Up Appointments: [facility] [Provider Group] Forms: MyHealth Info Instructions
[2023-11-13 08:02] VITALS: BP 123/70; PULSE 93; RESP 16; TEMP 36.7; O2SAT 96
[2023-11-13 14:51] VITALS: BP 124/70; PULSE 89; RESP 16; TEMP 36.8
== END 2023-11-13 15:00 | disposition home or self-care (01) | DRG 805 ==
PROVIDERS: Admitting Provider Obstetrics & Gynecology; PCP Family Medicine; Visit Provider Obstetrics & Gynecology
DX: O10.92 Unspecified pre-existing hypertension complicating childbirth (principal); O41.1230 Chorioamnionitis, third trimester, not applicable or unspecified; Z37.0 Single live birth; Z3A.39 39 weeks gestation of pregnancy; O70.1 Second degree perineal laceration during delivery; O99.344 Other mental disorders complicating childbirth; F40.10 Social phobia, unspecified; F41.9 Anxiety disorder, unspecified; O99.214 Obesity complicating childbirth
CPT/HCPCS: 01967; 36415; 82565; 82570; 84156; 84450; 84460; 84520; 85018; 85025; 86592; 86850; 86900; 86901; 88307; A9270; J0290; J0665; J1580; J2371; J2405; J2795; J7120

== ENCOUNTER 2025-04-07 15:56 | Outpatient (CLI) | payer OTHER, SELFPAY | END 2025-04-07 15:57 | disposition home or self-care (01) | PROVIDERS: PCP Family Medicine; Visit Provider Family Medicine | DX: R73.9 Hyperglycemia, unspecified (principal); E66.01 Morbid (severe) obesity due to excess calories; R53.83 Other fatigue | CPT/HCPCS: 80053; 80061; 84443 ==